=== PATIENT | male | born 1990 | race Caucasian/White ===

== ENCOUNTER → 2024-12-30 11:05 | Outpatient (BNVA) | payer BC, MEDICAID, SELFPAY | PROVIDERS: Visit Provider Student in an Organized Health Care Education/Training Program | DX: Z21 Asymptomatic human immunodeficiency virus [HIV] infection status (principal); Z11.3 Encounter for screening for infections with a predominantly sexual mode of transmission; Z11.1 Encounter for screening for respiratory tuberculosis | CPT/HCPCS: 36415; 80053; 85025; 86360; 86480; 86592; 86705; 86706; 86709; 86803; 87340; 87536 ==